=== PATIENT | female | born 1955 | race Caucasian/White ===

== ENCOUNTER 2018-09-12 14:30 | Outpatient (CLI) | payer OTHER | END 2018-09-12 15:40 | disposition home or self-care (01) | LOC: TOM 14:30 | DX: D17.9 Benign lipomatous neoplasm, unspecified (principal); R22.2 Localized swelling, mass and lump, trunk ==

== ENCOUNTER 2019-03-15 14:56 | Outpatient (CLI) | payer OTHER | END 2019-03-15 15:17 | disposition home or self-care (01) | LOC: RAD 14:56 | DX: M17.11 Unilateral primary osteoarthritis, right knee (principal) ==

== ENCOUNTER 2019-06-11 10:48 | Outpatient (CLI) | payer OTHER | END 2019-06-11 10:54 | disposition home or self-care (01) | LOC: RAD 10:48 | DX: J18.8 Other pneumonia, unspecified organism (principal); R06.09 Other forms of dyspnea; A49.3 Mycoplasma infection, unspecified site ==